=== PATIENT | male | born 1950 | race American Indian/Alaskan Native ===

== ENCOUNTER 2022-01-16 06:11 | Day surgery (SDC) | payer MEDICARE ==
--- NOTE | 2022-01-14 10:11 | Anesthesia Consultation ---
Anesthesia Consult and Med Hx Date of service: 01/16/22 - Airway Anesthetic Teeth Evaluation: Good (Missing) ROM Head & Neck: Adequate Mental/Hyoid Distance: Adequate Mallampati Class: Class II Intubation Access Assessment: Good - Pre-Operative Health Status ASA Pre-Surgery Classification: ASA2 Proposed Anesthetic Plan: General - Pulmonary Hx Smoking: No Hx Asthma: Yes (TILL AGE 28 NO PROBLEMS SINCE) Hx Sleep Apnea: No (SNORES-SHERON PRESCREEN HIGH) - Cardiovascular System Hx Hypertension: Yes - Central Nervous System Hx Back Pain: Yes Hx Psychiatric Problems: Yes (OCD) - Gastrointestinal Hx Gastroesophageal Reflux Disease: No - Hematic Hx Anemia: No Hx Sickle Cell Disease: No - Other Systems Hx Alcohol Use: No Hx Substance Use: No Hx Cancer: No
[2022-01-14 10:25] LABS: Hematocrit 36.3 % (35.5-45.6); Hemoglobin 12.1 gm/dl (11.8-15.2); Mean Corpuscular HGB Conc 33 % (32-34); Mean Corpuscular Volume 88 fl (84-94); Platelet Count 236 K/mm3 (140-440); Red Blood Count 4.14 M/mm3 (3.65-5.03); Red Cell Distribution Width 13.4 % (13.2-15.2)
[2022-01-14 10:53] LABS: Alanine Aminotransferase 10 units/L (7-56); Albumin 4.2 g/dL (3.9-5); BUN/Creatinine Ratio 6; Blood Urea Nitrogen 9 mg/dL (9-20); Calcium 8.8 mg/dL (8.4-10.2); Hemolysis Index 2
[~2022-01-16 06:11] MED LIST: LACTATED RINGERS 1,000 ML IV SCH; MIDAZOLAM 2 MG/2 ML INJ IV NR
[2022-01-16] MEDS ORDERED: ceFAZolin/STERILE WATER 2 GM/20 ML SYRINGE IV NR (07:00)
[2022-01-16] MEDS ORDERED: propofoL 200 MG/20 ML VIAL IV ONE (07:30)
[2022-01-16] MEDS ORDERED: MIDAZOLAM 2 MG/2 ML INJ ONE (07:30)
[2022-01-16] MEDS ORDERED: fentaNYL 100 MCG/2 ML INJ ONE (07:30)
[2022-01-16] MEDS ORDERED: ONDANSETRON 4 MG/2 ML INJ IV PRN (07:32)
[2022-01-16] MEDS ORDERED: HYDROmorphone 0.5 MG/0.5 ML INJ IV PRN ×2 (07:32)
--- NOTE | 2022-01-16 07:32 | Anesthesia Day of Surgery ---
Anesthesia Day of Surgery - Day of Surgery Patient Examined: Yes Patient H&P Reviewed: Yes Patient is NPO: Yes
[2022-01-16] MEDS ORDERED: ceFAZolin/Water 2 GM/20 ML 2 GM/20 ML SYRINGE IV ONE (07:37)
--- NOTE | 2022-01-16 08:31 | Operative Report ---
DATE OF SURGERY: 01/16/2022 TIME: Approximately 8:00 a.m. PREOPERATIVE DIAGNOSES: 1. Bulky pelvic lymphadenopathy. 2. Elevated PSA. POSTOPERATIVE DIAGNOSES: 1. Bulky pelvic lymphadenopathy. 2. Elevated PSA. OPERATIVE PROCEDURE: Transrectal ultrasound-guided prostate needle biopsy. ATTENDING PHYSICIAN: Christopher Bob MD. SUPERVISOR COLOR MAKING: None. ANESTHESIA: MAC. ESTIMATED BLOOD LOSS: 25 mL. DRAINS: None. SPECIMENS: Prostate needle biopsies. COMPLICATIONS: None. INDICATIONS FOR PROCEDURE: The patient is a 71-year-old man who presented to the ER with pain and was found to have bulky pelvic lymphadenopathy. He had an elevated PSA. He presents today for prostate needle biopsy to confirm or refute a diagnosis of metastatic prostate cancer. DESCRIPTION OF PROCEDURE IN DETAIL: After induction of suitable anesthesia and proper positioning and preparation in the dorsal lithotomy position, a transrectal ultrasound of the prostate was performed. The patient had approximately 25 gram prostate. He had an obvious 1.5 x 1.5 x 1.5 cm nodule on the left side. Sequential sextant biopsies were then taken. Specific biopsies of the nodule were taken. A total of 14 biopsies were taken. The patient tolerated the procedure well. He was awakened from anesthesia and transported to recovery room in stable condition. He will return to the office in approximately 2 weeks for prostate biopsy pathology review. TID: [id number] RECEIPT: [id number] NICHELLE/LORENA
--- NOTE | 2022-01-16 08:44 | Ultrasound Report ---
TRANSRECTAL ULTRASOUND HISTORY: ELEVATED PSA. Guidance for prostate biopsy TECHNIQUE: Grayscale and color Doppler imaging performed. COMPARISON: None FINDINGS: Transrectal ultrasound guidance was provided by radiology during prostate biopsy by urology . The prostate gland volume measures 25.4 cc. The prostate gland is heterogeneous with a peripheral h ypodense nodule measuring up to 1.6 cm. Please correlate with the procedural report as needed. IMPRESSION: Successful prostate biopsy under transrectal ultrasound guidance. Signer Name: Everardo Brown Jr, MD Signed: 01/16/2022 8:40 AM Workstation Name: [id number]
[2022-01-16 11:10] VITALS: BP 125/74
--- NOTE | 2022-01-16 14:09 | Post Anesthesia Evaluation ---
- Post Anesthesia Evaluation Patient Participated: Yes Airway Patent: Yes Stable Respiratory Function: Yes Nausea/Vomiting: No Temp > 96.8F: Yes Pain Manageable: Yes Adequeate Hydration: Yes Anesthesia Complications: No Block Receding Appropriately: Not Applicable Patient on Ventilator: No
== END 2022-01-16 11:00 | disposition home or self-care (01) ==
LOC: OR 06:11
PROVIDERS: ATTEND Urology
DX: R97.20 Elevated prostate specific antigen [PSA] (principal); I10 Essential (primary) hypertension; J45.909 Unspecified asthma, uncomplicated; M19.90 Unspecified osteoarthritis, unspecified site; Z20.822 Contact with and (suspected) exposure to COVID-19; R59.0 Localized enlarged lymph nodes; Z79.899 Other long term (current) drug therapy; Z79.82 Long term (current) use of aspirin; Z98.890 Other specified postprocedural states; Z82.49 Family history of ischemic heart disease and other diseases of the circulatory system
CPT/HCPCS: 36415; 55700; 76872; 80053; 85027; 88305; J0690; J2250; J2704; J3010; J7120; U0003